=== PATIENT | male | born 1985 | race Caucasian/White ===

== ENCOUNTER → 2024-02-19 | Outpatient (CLI) | payer OTHER, SELFPAY ==
[2024-02-19 17:33] LABS: Basophil# 0.03 X10^3/uL; Basophil% 0.9 % (0-1); Eosinophil# 0.08 X10^3/uL; Eosinophils% 2.3 % (0-5); Hematocrit 41.4 % (40-54); Hemoglobin 14.1 g/dL (13.0-16.5); Lymphocyte % 28.8 % (19-41); Mean Corp Hgb Conc 34.1 g/dL (32-36); Mean Corpuscular Hgb 30.9 pg (27.0-32.0); Mean Corpuscular Volume 90.8 fL (80-94); Monocyte# 0.33 X10^3/uL; Monocyte% 9.5 % (0-10); NRBC Flagged by Analyzer 0 % (0-5); Neutrophil # 2.01 X10^3/uL (2.7-7.7); Neutrophil % 57.9 % (47-70); Platelet Count 221 K/mm3 (150-450); RBC Distribution Width CV 11.9 % (11.6-14.6); RBC Distribution Width SD 39.8 fl (35.1-43.9); Red Blood Count 4.56 M/mm3 (4.6-6.2); White Blood Count 3.5 K/mm3 (4.4-11.0)
[2024-02-19 17:50] LABS: Vitamin B12 361 pg/mL (211-911); Vitamin D,25 Hydroxy 30.6 ng/mL
[2024-02-19 17:54] LABS: Hemoglobin A1c 4.9 % (3.8-5.6)
[2024-02-19 18:01] LABS: ALB/GLOB Ratio 1.6 RATIO (0.9-2.4); AST(SGOT) 18 U/L (15-37); Alanine Aminotransfer ALT/SGPT 25 U/L (16-61); Albumin, Serum 4.5 g/dL (3.2-5.0); Alkaline Phosphatase 60 U/L (45-117); Anion Gap 7 (5-15); BUN 11 mg/dL (7-18); BUN/Creat Ratio 13.4 RATIO (10-20); Calcium,Total 9.3 mg/dL (8.5-10.1); Chloride 104 mmol/L (98-107); Cholesterol 181 mg/dL (200); Creatinine, Serum 0.82 mg/dL (0.70-1.30); EST Glomerular Filtration Rate 110 mL/min (>60); Est Glom Filt Rate - Afr Amer 133 mL/min (>60); Globulin 2.9 g/dL (2.2-4.2); Glucose 83 mg/dL (74-106); High Density Lipoprotein 79 mg/dL; Magnesium 1.9 mg/dL (1.6-2.6); Potassium 3.6 mmol/L (3.5-5.1); Protein, Total 7.4 g/dL (6.4-8.2); Sodium Level 137 mmol/L (136-145); Triglycerides 52 mg/dL; Very Low Density Lipoprotein 10 mg/dL (5-40)
== END | disposition home or self-care (01) ==
LOC: VSLAB 14:13
PROVIDERS: PCP Nurse Practitioner Family; Visit Provider Nurse Practitioner Family
DX: Z00.00 Encounter for general adult medical examination without abnormal findings (principal); E56.9 Vitamin deficiency, unspecified; G43.909 Migraine, unspecified, not intractable, without status migrainosus
CPT/HCPCS: 36415; 80053; 80061; 82306; 82607; 83036; 83735; 84443; 85025

== ENCOUNTER → 2024-04-15 | Outpatient (CLI) | payer OTHER, SELFPAY ==
--- NOTE | 2024-04-15 07:20 | MRI_ITS ---
EXAM: MR HEAD WITHOUT AND WITH INTRAVENOUS CONTRAST CLINICAL INDICATION: MIGRAINE, STARTS ON THE L THEN SPREADS TO WHOLE HEAD TECHNIQUE: Multiplanar and multisequence MR images of the brain were obtained without and with intravenous contrast. CONTRAST: IV 20 CC CLARISCAN COMPARISON: No relevant prior studies available. FINDINGS: BRAIN AND EXTRA-AXIAL SPACES: No diffusion restriction to suspect acute or subacute ischemic infarct. Tiny nonspecific T2 FLAIR hyperintensity foci in the white matter of the cervical hemispheres without mass effect. They are nonenhancing. No abnormal enhancing lesions intra-axially and extra-axially. Normal ventricles and cisterns. No intra- or extra-axial hemorrhage. Posterior fossa structures are unremarkable. No hydrocephalus. SELLA: Unremarkable. Normal sella turcica, pituitary gland, infundibular stalk, optic chiasm and hypothalamus. AUDITORY SYSTEM: Unremarkable. The internal auditory canals are patent. BONES/JOINTS: Unremarkable. No discrete lytic or blastic abnormalities. SINUSES: Unremarkable as visualized. Clear. MASTOID AIR CELLS: Unremarkable as visualized. Clear. ORBITS: Unremarkable as visualized. Both globes, extraocular muscles, optic nerves and retrobulbar fat appear unremarkable. VASCULATURE: Unremarkable as visualized. Normal flow voids in the major intracranial circulation. MRI/Brain W/WO Contrast IMPRESSION: 1. No MRI evidence of acute or subacute ischemic infarct or acute intracranial abnormality. 2. No abnormally enhancing lesions intra-axially and extra-axially. 3. Few tiny T2 FLAIR hyperintensity foci in the white matter of the cerebral hemispheres are nonspecific. Possibilities include migraine-related changes, reversible cerebral vasoconstrictive syndrome, microvascular disease and vasculitis. Electronically Signed: Carrillo Head MD at 19:11 EDT ,
--- OUTSIDE RECORDS SUMMARY | 2024-04-15 07:37 | XMS RPT_ITS | CCD ---
Author Organization [place] [employer] [facility] Results Test Name Value Interpretation Reference Range Facil ity JULIETOVon 03-23-2021 CNOV Office Visit (ORMDRG ) ----- BARON VELASCO ([id number]) 1985 M Date Time Provider Department 03/23/21 2:30 PM MEERA SCHULER ORNMRJudson During your visit today, we recorded the following information about you: Meera Schuler MD 03/26/2021 11:57 AM Signed ORTHOPAEDIC SHOULDER AND ELBOW SERVICE HISTORY AND PHYSICAL EXAM CHIEF COMPLAINT: Left shoulder pain REFERRING PROVIDER: SELF HISTORY OF PRESENT ILLNESS: Baron Velasco is a 36 year old man who presents with for evaluation of pain in the left shoulder. He has a remote history of 2 stabilization procedures for the left shoulder in 2004 and 2006. Since that time the shoulder is remained stable that he has had a gradual decline in function and worsening of pain in the shoulder. He feels he is unable to lift overhead with any strength and cannot rotate the arm without severe difficulty and pain. He especially finds reaching behind the back to be difficult. He has a dull ache in the shoulder at rest and sharper pain with movement. He has not had any recent treatment of the shoulder but is taking nonprescription medication as needed. PAIN EVALUATION 03/23/2021 1451 Pain Level: 7 Pain Location: Shoulder-Left Description: Sharp Duration Amount of Time: 2 Frequency: Continuous PAST MEDICAL HISTORY: No past medical history on file. PAST SURGICAL HISTORY: PAST SURGICAL HISTORY Procedure Laterality Date - KNEE SURGERY HX Rt knee X4 - ORTHOPEDICS SURGERY HX - SHOULDER SURGERY HX Left SOCIAL HISTORY: Social History Tobacco Use - Smoking status: Never Smoker - Smokeless tobacco: Current User Substance Use Topics - Alcohol use: Yes Alcohol/week: 35.0 standard drinks Types: 42 Cans of beer per week - Drug use: No ALLERGIES: ALLERGIES No Known Allergies MEDICATIONS: Current Outpatient Medications on File Prior to Visit Medication Sig - methylPREDNISolone (MEDROL, MAC,) 4 mg Dose-Pack Take as directed (Patient not taking: Reported on 03/23/2021 ) - naproxen (NAPROSYN) 500 mg tablet Take 1 tablet by mouth twice daily as needed. TAKE WITH FOOD (Patient not taking: Reported on 10/06/2018 ) - VICODIN ES 7.5 MG-750 MG TAB one tab q 6-8 hrs prn pain (Patient not taking: No sig reported) No current facility-administered medications on file prior to visit. PHYSICAL EXAMINATION: There were no vitals taken for this visit. EXAM: Shoulder Musculoskeletal Exam General Constitutional: appears stated age Labored breathing: no Psychiatric: normal mood and affect and no acute distress Neurological: alert and oriented x3 Skin: intact Inspection Inspection - Left Ecchymosis: none Peripheral edema: none Atrophy: none Deformity: none Symmetry: symmetric Masses: none Skin tenting: none Prior incision: none Palpation Palpation - Left Crepitus: mild Increased warmth: none Range of Motion Range of Motion - Left Active forward elevation: 150 Passive forward elevation: 150 Shoulder active abduction: 150 Passive abduction: 150 Active external rotation at side: 60 Active external rotation in abduction: 80 Passive external rotation in abduction: 80 Active internal rotation in abduction: 60 Passive internal rotation in abduction: 60 Internal rotation: L3 Strength Strength - Left External rotation: 5/5 Internal rotation: 4-/5 Abduction: 5/5 Neurovascular Neurovascular - Left Left shoulder nerve sensation is normal. Scapula Scapula - Left Left shoulder scapula is normal. Special Tests Special Tests - Left Rotator Cuff Signs - Left Neer's test: negative Mcmullen test: positive External rotation lag sign: negative Supraspinatus: negative Belly press test: negative Painful arc test: negative Lift-off sign: positive Bear hug test: negative Drop arm test: negative Biceps/vinh Signs - Left Weidman's test: positive Clicking/popping: positive Speed's test: positive AC Joint Signs - Left Active horizontal adduction pain: negative Single finger test: negative IMAGING: I personally reviewed the radiographs of the left shoulder in the office today, and I am in agreement with the radiologist's interpretation with the following modifications: None. Previous Bankart surgery based on location of metallic anchors. MEDICAL DECISION MAKING: Functional Plan: Today we discussed his presentation consistent with labral tearing or bicipital tendinitis within the shoulder as well as possible upper border subscapularis tearing based on his inability to perform a liftoff maneuver behind the back. At this time he is working and cannot take time off for any surgery so we discussed conservative treatment options at this time. Corticosteroid injection was offered for relief of his acute and worsening pain. He will also take nonprescription medication as needed. He will consider the p (more content not included)... [facility] XR SHLDR >/=3V AP/VERITO AP/OTH R LTon 03-23-2021 XR SHLDR >/=3V AP/VERITO AP/OTHR LT * * *Final Report* * * DATE OF EXAM: Mar 23 2021 2:17PM ABRAHAM [id number] - XR SHLDR >/=3V AP/VERITO AP/OTHR LT / PROCEDURE REASON: M25.512-Left shoulder pain, unspecified chronicity * * * * Physician Interpretation * * * * LEFT shoulder EXAM DATE/TIME: 03/23/2021 2:17 PM HISTORY: 36 years old Clinical information: Left shoulder pain, unspecified chronicity LEFT SHOULDER PAIN TECHNIQUE: Images: XR SHLDR >/=3V AP/VERITO AP/OTHR LT Comparison: None. RESULT: Findings: Surgical anchors are noted in the glenoid. Moderate narrowing glenohumeral joint. Marked narrowing of the AC joint. Bone density appears well-preserved. No fractures or dislocations are seen. 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 Author Type: Physician Type: Progress Notes Filed: 03/26/2021 11:57 AM Note Text: ORTHOPAEDIC SHOULDER AND ELBOW SERVICE HISTORY AND PHYSICAL EXAM CHIEF COMPLAINT: Left shoulder pain REFERRING PROVIDER: SELF HISTORY OF PRESENT ILLNESS: Baron Velasco is a 36 year old man who presents with for evaluation of pain in the left shoulder. He has a remote history of 2 stabilization procedures for the left shoulder in 2004 and 2006. Since that time the shoulder is remained stable that he has had a gradual decline in function and worsening of pain in the shoulder. He feels he is unable to lift overhead with any strength and cannot rotate the arm without severe difficulty and pain. He especially finds reaching behind the back to be difficult. He has a dull ache in the shoulder at rest and sharper pain with movement. He has not had any recent treatment of the shoulder but is taking nonprescription medication as needed. PAIN EVALUATION 03/23/2021 1451 Pain Level: 7 Pain Location: Shoulder-Left Description: Sharp Duration Amount of Time: 2 Frequency: Continuous PAST MEDICAL HISTORY: No past medical history on file. PAST SURGICAL HISTORY: PAST SURGICAL HISTORY Procedure Laterality Date - KNEE SURGERY HX Rt knee X4 - ORTHOPEDICS SURGERY HX - SHOULDER SURGERY HX Left SOCIAL HISTORY: Social History Tobacco Use - Smoking status: Never Smoker - Smokeless tobacco: Current User Substance Use Topics - Alcohol use: Yes Alcohol/week: 35.0 standard drinks Types: 42 Cans of beer per week - Drug use: No ALLERGIES: ALLERGIES No Known Allergies MEDICATIONS: Current Outpatient Medications on File Prior to Visit Medication Sig - methylPREDNISolone (MEDROL, MAC,) 4 mg Dose-Pack Take as directed (Patient not taking: Reported on 03/23/2021 ) - naproxen (NAPROSYN) 500 mg tablet Take 1 tablet by mouth twice daily as needed. TAKE WITH FOOD (Patient not taking: Reported on 10/06/2018 ) - VICODIN ES 7.5 MG-750 MG TAB one tab q 6-8 hrs prn pain (Patient not taking: No sig reported) No current facility-administered medications on file prior to visit. PHYSICAL EXAMINATION: There were no vitals taken for this visit. EXAM: Shoulder Musculoskeletal Exam General Constitutional: appears stated age Labored breathing: no Psychiatric: normal mood and affect and no acute distress Neurological: alert and oriented x3 Skin: intact Inspection Inspection - Left Ecchymosis: none Peripheral edema: none Atrophy: none Deformity: none Symmetry: symmetric Masses: none Skin tenting: none Prior incision: none Palpation Palpation - Left Crepitus: mild Increased warmth: none Range of Motion Range of Motion - Left Active forward elevation: 150 Passive forward elevation: 150 Shoulder active abduction: 150 Passive abduction: 150 Active external rotation at side: 60 Active external rotation in abduction: 80 Passive external rotation in abduction: 80 Active internal rotation in abduction: 60 Passive internal rotation in abduction: 60 Internal rotation: L3 Strength Strength - Left External rotation: 5/5 Internal rotation: 4-/5 Abduction: 5/5 Neurovascular Neurovascular - Left Left shoulder nerve sensation is normal. Scapula Scapula - Left Left shoulder scapula is normal. Special Tests Special Tests - Left Rotator Cuff Signs - Left Neer's test: negative Mcmullen test: positive External rotation lag sign: negative Supraspinatus: negative Belly press test: negative Painful arc test: negative Lift-off sign: positive Bear hug test: negative Drop arm test: negative Biceps/vinh Signs - Left Weidman's test: positive Clicking/popping: positive Speed's test: positive AC Joint Signs - Left Active horizontal adduction pain: negative Single finger test: negative IMAGING: I personally reviewed the radiographs of the left shoulder in the office today, and I am in agreement with the radiologist's interpretation with the following modifications: None. Previous Bankart surgery based on location of metallic anchors. MEDICAL DECISION MAKING: Functional Plan: Today we discussed his presentation consistent with labral tearing or bicipital tendinitis within the shoulder as well as possible upper border subscapularis tearing based on his inability to perform a liftoff maneuver behind the back. At this time he is working and cannot take time off for any surgery so we discussed conservative treatment options at this time. Corticosteroid injection was offered for relief of his acute and worsening pain. He will also take nonprescription medication as needed. He will consider the possibility that he may need surgery and will try to make time for this. If he returns and wants to discuss things further we will obtain an MRI for complete evaluation of the shoulder inc (more content not included)... [facility] Progress note 03-23-2021 Note Date & Type Note Facility 03-23-2021 Note HNO ID: [id number] Author: RT Promise(R) Service: Radiology Author Type: Technologist Type: Progress Notes Filed: 03/23/2021 2:18 PM Note Text: Radiology Service Progress Note PATIENT NAME: Baron Velasco DATE OF SERVICE: March 23, 2021 TIME: 2:17 PM PATIENT IDENTITY VERIFICATION COMPLETED USING TWO (2) IDENTIFIERS: Name and Date of confirmed by patient verbally. FALL SCREENING: Has the patient had 2 falls in the last year or 1 fall with injury or currently using an Ambulatory Assistive Device (Walker, Cane, Wheelchair, Crutches, etc.)? No PATIENT GENDER DATA: Male PATIENT RELEVANT IMPLANT DATA REVIEWED: Not Applicable RADIOLOGY DEPARTMENT: General X-ray: Exam(s) Completed: Upper Extremity X-Ray(s): Shoulder, AP / TRUE AP / AXILLARY left PERIPHERAL IV DATA: Not applicable SIGNED BY: RT Promise(R) March 23, 2021 2:17 PM [facility] Summary Purpose Family History No Family History Records FoundNo Family History Records Found Advance Directives No Advanced Directives Records FoundNo Advanced Directives Records Found Additional Source Comments (unrecognized sect ion and content) No Status Records FoundNo Status Records Found INFORMATION SOURCE (unrecogn ized section and content) DATE CREATED AUTHOR 03/24/2021 [facility] DATE CREATED AUTHOR AUTHOR'S ORGANIZ ATION 08/01/2021 [facility] FOR RECORDS PERTAINING TO PATIENTS WHO ARE OR HAVE BEEN ENROLLED IN A CHEMICAL DEPENDENCY/SUBSTANCEABUSE PROGRAM, SOME INFORMATION MAY BE OMITTED. This clinical summary was aggregated from multiple sources. Caution should be exercised in using it in the provision of clinical care. This summary normalizes information from multiple sources, and as a consequence, information in this document may materially change the coding, format and clinical context of patient data. In addition, data may be omitted in some cases. CLINICAL DECISIONS SHOULD BE BASED ON THE PRIMARY CLINICAL RECORDS. [employer] [facility]. provides no warranty or guarantee of the accuracy or completeness of information in this document.
== END | disposition home or self-care (01) ==
PROVIDERS: PCP Nurse Practitioner Family; Referring Provider Nurse Practitioner Family; Visit Provider Nurse Practitioner Family
DX: G43.909 Migraine, unspecified, not intractable, without status migrainosus (principal)
CPT/HCPCS: 70553; A9575

== ENCOUNTER → 2024-11-03 | Outpatient (CLI) | payer OTHER, SELFPAY ==
[2024-11-03 16:50] LABS: Absolute Lymphocyte Count 1.01 X10^3/uL (0.83-4.51); Absolute Neutrophil Count 2.4 X10^3/uL (2.0-7.7); Basophil# 0.02 X10^3/uL; Basophil% 0.5 % (0-1); Eosinophil# 0.02 X10^3/uL; Eosinophils% 0.5 % (0-5); Hematocrit 40.9 % (40-54); Hemoglobin 14.4 g/dL (13.0-16.5); Lymphocyte # 1.01 X10^3/ul (0.83-4.51); Lymphocyte % 26.2 % (19-41); Mean Corp Hgb Conc 35.2 g/dL (32-36); Mean Corpuscular Hgb 32.1 pg (27.0-32.0); Mean Corpuscular Volume 91.3 fL (80-94); Mean Platelet Vol. 9.7 fl (6.2-12.0); Monocyte# 0.43 X10^3/uL; Monocyte% 11.1 % (0-10); NRBC Flagged by Analyzer 0 % (0-5); Neutrophil # 2.38 X10^3/uL (2.7-7.7); Neutrophil % 61.7 % (47-70); Platelet Count 250 K/mm3 (150-450); RBC Distribution Width CV 11.9 % (11.6-14.6); RBC Distribution Width SD 39.7 fl (35.1-43.9); Red Blood Count 4.48 M/mm3 (4.6-6.2); White Blood Count 3.9 K/mm3 (4.4-11.0)
[2024-11-03 18:12] LABS: ALB/GLOB Ratio 1.9 RATIO (0.9-2.4); AST(SGOT) 25 U/L (<=37); Alanine Aminotransfer ALT/SGPT 26 U/L (<=46); Albumin, Serum 4.8 g/dL (3.5-5.0); Alkaline Phosphatase 62 U/L (40-129); Anion Gap 13 (5-15); BUN 11 mg/dL (4-19); BUN/Creat Ratio 12.8 RATIO (10-20); Calcium,Total 9.6 mg/dL (7.6-11.0); Carbon Dioxide 24.5 mmol/L (21.0-32.0); Chloride 103 mmol/L (98-108); Cholesterol 176 mg/dL (<=200); Creatinine, Serum 0.89 mg/dL (0.70-1.20); EST Glomerular Filtration Rate 110 (>60); Globulin 2.5 g/dL (2.2-4.2); Glucose 88 mg/dL (70-99); High Density Lipoprotein 83 mg/dL; Low Density Lipoprotein Calc. 80 mg/dL; Potassium 3.8 mmol/L (3.3-5.1); Protein, Total 7.3 g/dL (5.9-8.4); Sodium Level 140 mmol/L (133-145); Triglycerides 62 mg/dL; Very Low Density Lipoprotein 12 mg/dL (5-40); Vitamin B12 575 pg/mL (180-914); cholesterol:hdl ratio screen 2.11
[2024-11-03 19:47] LABS: Hemoglobin A1c 4.9 % (<=5.6)
[2024-11-05 04:07] LABS: GGTP 18 IU/L (0-65)
== END | disposition home or self-care (01) ==
LOC: VSLAB 13:29
PROVIDERS: PCP Nurse Practitioner Family; Visit Provider Nurse Practitioner Family
DX: G43.909 Migraine, unspecified, not intractable, without status migrainosus (principal); R94.5 Abnormal results of liver function studies; E56.9 Vitamin deficiency, unspecified; Z13.228 Encounter for screening for other metabolic disorders
CPT/HCPCS: 36415; 80053; 80061; 82306; 82607; 82977; 83036; 85025